=== PATIENT | female | born 1985 | race Asian ===

== ENCOUNTER → 2018-02-16 | Outpatient (CLI) | payer OTHER | LOC: COL.RAD 10:25 | DX: E22.1 Hyperprolactinemia (principal) | CPT/HCPCS: A9585 ==

== ENCOUNTER → 2018-10-24 | Outpatient (CLI) | payer OTHER | LOC: SUN.DIA 11:32 | DX: O24.419 Gestational diabetes mellitus in pregnancy, unspecified control (principal); Z3A.29 29 weeks gestation of pregnancy ==

== ENCOUNTER → 2018-10-31 | Outpatient (CLI) | payer OTHER | LOC: SUN.DIA 12:42 | DX: O24.419 Gestational diabetes mellitus in pregnancy, unspecified control (principal); Z3A.30 30 weeks gestation of pregnancy | CPT/HCPCS: G0108 ==

== ENCOUNTER → 2018-11-14 | Outpatient (CLI) | payer OTHER | LOC: SUN.DIA 11-02 09:29 | DX: O24.419 Gestational diabetes mellitus in pregnancy, unspecified control (principal); Z3A.33 33 weeks gestation of pregnancy | CPT/HCPCS: G0108 ==

== ENCOUNTER → 2018-12-05 | Outpatient (CLI) | payer OTHER | LOC: SUN.DIA 08:48 | DX: O24.419 Gestational diabetes mellitus in pregnancy, unspecified control (principal); Z3A.35 35 weeks gestation of pregnancy | CPT/HCPCS: G0108 ==

== ENCOUNTER → 2018-12-26 | Outpatient (CLI) | payer OTHER | LOC: SUN.DIA 08:53 | DX: O24.419 Gestational diabetes mellitus in pregnancy, unspecified control (principal); Z3A.38 38 weeks gestation of pregnancy | CPT/HCPCS: G0108 ==

== ENCOUNTER 2018-12-31 08:17 | Inpatient (IN) | payer OTHER ==
[~2018-12-31] VITALS: Ht 155 cm; Wt 77.7 kg
[2018-12-31] VITALS (41 sets, daily range): BP systolic 104–164; BP diastolic 56–96; PULSE 79–110; TEMP 97.8–98.8
--- NOTE | 2018-12-31 08:30 | NUR ---
Patient ambulatory to unit accompanied by spouse. Patient states she has been feeling cramping the past 24 hours in her lower abdomen and lower back. Patient denies any leaking of fluid or vaginal bleeding but state she has lost her mucous plug. Patient reports movement but states the baby has not been as active as usual. G1L0, 39 weeks gestation. problems reviewed with patient. FHR and contraction monitors placed and explained. VS stable. SVE 3-4/90/-2, bulging bag of preston noted on exam. Patient breathing through contractions. Will call doctor for further orders.
[2018-12-31] MEDS ORDERED: PRENATAL MVI PO (08:56)
[2018-12-31] MEDS ORDERED: IRON TABLETS325 MG PO (08:59)
[2018-12-31] MEDS ORDERED: TUMS500 MG PO (08:59)
[2018-12-31] MEDS ORDERED: ZANTAC 7575 MG PO (09:00)
--- NOTE | 2018-12-31 09:40 | NUR ---
0940: SVE after 1 hour, unchanged but bag of preston bulging. Patient breathing heavily but controlled through contractions. Dr. Parish at nurses station and notified. Verbal order to admit patient.
[2018-12-31 10:17] LABS: BASO % 0.2 % (0.0-2.0); EOS % 0.1 % (0-4.0); GRAN # 7.8 (1.4-6.5); GRAN % 73.6 % (42.2-75.2); HEMATOCRIT 40.3 % (37.0-47.0); HEMOGLOBIN 13.2 g/dl (12.5-16.0); LYMPH # 2.1 (1.2-3.4); MEAN CELL VOLUME 85 fl (80.0-100.0); MEAN CORPUSCULAR HEMOGLOBIN 28 pg (27.0-31.0); MEAN CORPUSCULAR HGB CONC 33 g/dl (33.0-37.0); MEAN PLATELET VOLUME 11.4 fl (7.4-10.4); MONO # 0.6 (0.1-0.6); MONO % 5.8 % (1.7-9.3); PLATELET COUNT 215 K/mm3 (130-400); RED BLOOD COUNT 4.76 M/mm3 (4.10-5.30); REDCELL DISTRIBUTION WIDTH-CV 16.5 % (11.5-14.5)
--- NOTE | 2018-12-31 10:27 | NUR ---
1027: Dr. Parish at bedside. AROM with moderate amount of meconium fluid noted. FHR reactive with acceleration noted during SVE and AROM. SVE 5/100/-[address] Parish. Pericare provided. 1030: Patient requesting epidural and Dr. Parish at bedside and gives verbal order to patient to receive epidural. 1031: Julian Capellan CRNA called and notified of patient request.
--- NOTE | 2018-12-31 11:15 | NUR ---
1115: Patient repositioned and sitting up at side of bed for epdiural placement. Julian Capellan CRNA in room and epidural procedure explained. Epidural time out completed. 1119: Single shot given. 1121: Epidural catheter placed. 1122: Test dose given. 1128: Patient repositioned, wedged left and resting without complaint at this time. See anesthesia records.
--- NOTE | 2018-12-31 11:42 | NUR ---
1142l: Blood pressure 86/49, pulse 100. Patient asymptomatic with low blood pressure. Julian Capellan CRNA at nurses station and gives order to treat blood pressure with ephedrine per protocol. 1147: 10mg Ephedrine given IV push. Repeat blood pressure at 1152 116/66, pulse 93.
--- NOTE | 2018-12-31 12:48 | NUR ---
1248: scalp electrode placed but not tracing consistently. Scalp electrode removed. 1300: scalp electrode placed by Rogelio Campbell RN and tracing well.
--- NOTE | 2018-12-31 14:30 | NUR ---
1430: LR 500ml bolus infused. Rate back to 125ml/hr. Pitocin started per Dr. Parish order. 1435: Patient states she thinks her blood sugar might be a little low as she is feeling dizzy and nauseated. patient checks own blood sugar with her glucometer, 128. Patient requests jello at this time. VS stable 1450: Patient denies feeling nauseated or dizzy.
--- NOTE | 2018-12-31 15:35 | NUR ---
1535: Dr. Parish at nurses station and reviews FHR and contraction pattern. To bedside. SVE by Dr. Parish, no cervical change noted, still 5cm. Discuss with patient need to continue with section due to failure to progress and heart rate variable decelerations. section procedure explained. Patient prepped for OR. Lower abdominal mons area shaved and incision site prepped. scalp electrode removed at 1546 and patient taken back to OR via bed.
--- NOTE | 2018-12-31 17:45 | NUR ---
IV to INT. Epidural catheter removed, blue tip intact, band aid to site. Abdominal binder placed. Pericare provided and new pad placed. Patient resting in bed, denies need at this time. Call light in reach.
[2019-01-01 04:25] VITALS: BP 128/78; PULSE 89; TEMP 97.4
[2019-01-01 07:30] VITALS: BP 106/65; PULSE 86; TEMP 97.8
--- NOTE | 2019-01-01 09:08 | NUR ---
Initial visit; Medical Voucher Clerk offered congratulations and thanked family for choosing [facility] as the hospital in which to have their son.
[2019-01-01 16:33] VITALS: BP 106/56; PULSE 89; TEMP 97.6
[2019-01-01 18:45] VITALS: BP 113/68; PULSE 79; TEMP 98.2
[2019-01-02 07:00] VITALS: BP 118/71; PULSE 81; TEMP 98.6
[2019-01-02] MEDS ORDERED: IBU600 MG PO (09:24)
[2019-01-02] MEDS ORDERED: PERCOCET 325 MG1 TA2 PO (09:24)
[2019-01-02 12:30] VITALS: BP 111/67; PULSE 68; TEMP 98
[2019-01-02 16:00] VITALS: BP 120/74; PULSE 87; TEMP 97.6
[2019-01-02 20:10] VITALS: BP 125/79; PULSE 89; TEMP 98.5
[2019-01-03 09:00] VITALS: BP 101/52; PULSE 95; TEMP 97.9
== END 2019-01-03 14:15 | disposition home or self-care (01) | DRG 788 ==
LOC: LDRO 08:17 → OB 09:45 → LDR 09:45 → OB 18:20
PROVIDERS: Obstetrics & Gynecology; ADMIT Obstetrics & Gynecology
PROC: 10D00Z1 Extraction of Products of Conception, Low, Open Approach (ICD-10-PCS; principal; 2018-12-31)
DX: O24.420 Gestational diabetes mellitus in childbirth, diet controlled (principal); Z3A.39 39 weeks gestation of pregnancy; Z37.0 Single live birth; O77.0 Labor and delivery complicated by meconium in amniotic fluid; O62.0 Primary inadequate contractions; O76 Abnormality in fetal heart rate and rhythm complicating labor and delivery
CPT/HCPCS: J0690; J1885; J2270; J2370; J2405; J2590; J2795; J7120